=== PATIENT | female | born 1995 | race African-American/Black ===

== ENCOUNTER 2021-05-27 01:04 | Emergency (ER) | payer SELFPAY ==
[~2021-05-27] VITALS: Ht 182.9 cm; Wt 65.8 kg
[2021-05-27 01:10] VITALS: BP 147/87
--- NOTE | 2021-05-27 02:22 | NUR ---
Patient discharged to home in stable condition. Written and verbal after care instructions given. Patient verbalizes understanding of instruction.
== END 2021-05-27 02:22 | disposition home or self-care (01) ==
LOC: ER 01:06
DX: M79.89 Other specified soft tissue disorders (principal)

== ENCOUNTER 2021-07-05 13:23 | Emergency (ER) | payer MEDICAID ==
[~2021-07-05] VITALS: Ht 182.9 cm; Wt 63.5 kg
--- NOTE | 2021-07-05 13:28 | NUR ---
KATHERIN [id number] From Home "Headache/Hx Migraine x2days/nausea"
[2021-07-05] MEDS ORDERED: KETOROLAC TROMETHAMINE INJ 60 MG/2 ML VIAL IM ONE ×2 (13:58→14:00)
[2021-07-05] MEDS ORDERED: ONDANSETRON HCL/PF 4 MG/2 ML VIAL ONE (13:59)
[2021-07-05] MEDS ORDERED: MORPHINE SULFATE INJ 2 MG/ML DISP.SYRIN ONE (13:59)
[2021-07-05] MEDS ORDERED: MORPHINE SULFATE INJ 2 MG/ML DISP.SYRIN IM ONE (14:00)
[2021-07-05] MEDS ORDERED: ONDANSETRON HCL/PF 4 MG/2 ML VIAL IM ONE (14:00)
--- NOTE | 2021-07-05 14:22 | NUR ---
URINE COLLECTED AND SENT
[2021-07-05] MEDS ORDERED: BUTA1CAP3 PO (15:23)
[2021-07-05] MEDS ORDERED: NAPR-1192 PO (15:24)
[2021-07-05 15:52] VITALS: BP 123/64
--- NOTE | 2021-07-05 15:52 | NUR ---
Patient discharged to home in stable condition. Written and verbal after care instructions given. Patient verbalizes understanding of instruction.
== END 2021-07-05 15:53 | disposition home or self-care (01) ==
LOC: ER 13:26
DX: G43.909 Migraine, unspecified, not intractable, without status migrainosus (principal); Z60.2 Problems related to living alone
CPT/HCPCS: 70450; 84703; 96372 ×2; 99284; J1885; J2270; J2405